=== PATIENT | female | born 1980 | race Caucasian/White ===

== ENCOUNTER 2018-01-03 15:58 | Emergency (ER) | payer OTHER ==
[~2018-01-03] VITALS: Ht 165.1 cm; Wt 108.9 kg
[~2018-01-03 15:58] MED LIST: ALEVE220 MG PO; AMOX1TAB12 PO; INDAPAMIDE1.25 MG PO; MUPIROCIN15 GM TP; RAMIPRIL10 MG PO; RELAFEN500 MG PO
== END 2018-01-03 21:04 | disposition home or self-care (01) ==
LOC: ER 15:58
DX: G56.02 Carpal tunnel syndrome, left upper limb (principal); M77.8 Other enthesopathies, not elsewhere classified

== ENCOUNTER 2022-09-25 11:55 | Emergency (ER) | payer OTHER ==
[~2022-09-25] VITALS: Ht 162.6 cm; Wt 109.3 kg
[2022-09-25] MEDS ORDERED: INDAPAMIDE1.25 MG PO (12:34)
[2022-09-25] MEDS ORDERED: ALBUTEROL0.63 MG/3 IH (15:42)
== END 2022-09-25 15:59 | disposition home or self-care (01) ==
LOC: ER 11:55
DX: J04.0 Acute laryngitis (principal); R06.02 Shortness of breath; Z20.822 Contact with and (suspected) exposure to COVID-19

== ENCOUNTER → 2022-12-17 11:44 | Outpatient (CLI) | payer OTHER ==
[~2022-12-17 11:44] MED LIST changes: +ALBUTEROL0.63 MG/3 IH
== END | disposition home or self-care (01) ==
LOC: EKG 11:44
DX: G56.02 Carpal tunnel syndrome, left upper limb (principal); D48.9 Neoplasm of uncertain behavior, unspecified